=== PATIENT | female | born 1980 | race Two or more races ===

== ENCOUNTER 2016-12-05 07:29 | Emergency (ER) | payer BC ==
[2016-12-05] MEDS ORDERED: NS 0.9% 1000 ML* 1,000 ML IV ONE ×2 (07:57→12:07)
[2016-12-05] MEDS ORDERED: HYDROmorphone* 1 MG/ML 1 ML SYR IV ONE (07:57)
[2016-12-05] MEDS ORDERED: Ondansetron INJ* 2 MG/ML VIAL IV ONE (07:57)
[2016-12-05 08:46] LABS: Hematocrit 43 % (35-47); Hemoglobin 13.9 g/dl (12.0-16.0); Mean Corpuscular HGB Conc 32 g/dl (31-36); Mean Corpuscular Hemoglobin 30 pg (27-31); Mean Corpuscular Volume 91 fL (80-97); Mean Platelet Volume 9 um3 (7.4-10.4); Red Blood Count 4.71 10^6/ul (4.0-5.4); Red Cell Distribution Width 14 % (10.5-15); White Blood Count 15.1 10^3/ul (3.5-10.8)
[2016-12-05 08:47] LABS: Comments Flag Yes
[2016-12-05 08:48] LABS: Add Diff/Slide Review? Slide Review Added
[2016-12-05 09:02] LABS: ALT 137 U/L (7-52); AST 144 U/L (13-39); Albumin 3.8 g/dL (3.2-5.2); Alkaline Phosphatase 61 U/L (34-104); Anion Gap 6 mmol/L (2-11); BUN/Creatinine Ratio 18.8 (8-20); Blood Urea Nitrogen 15 mg/dL (6-24); C Reactive Protein 21.79 mg/L (< 5.00); CO2 Carbon Dioxide 23 mmol/L (22-32); Calcium 8.6 mg/dL (8.6-10.3); Chloride 106 mmol/L (101-111); EGFR African American 104.4 (>60); EGFR Non-African American 81.2 (>60); Globulin 3.2 g/dL (2-4); Glucose 83 mg/dL (70-100); Lipase 21 U/L (11.0-82.0); Potassium 3.8 mmol/L (3.5-5.0); Sodium 135 mmol/L (133-145)
[2016-12-05 09:23] LABS: Immature Granulocytes 5 % (0-9); Neutrophil % 76 % (38-83)
[2016-12-05 09:24] LABS: Platelet Morphology Large; RBC Morphology Normal (Normal)
[2016-12-05 11:47] LABS: Urine Bacteria Absent (Absent); Urine Bilirubin Negative (Negative); Urine Glucose Negative (Negative); Urine Nitrite Negative (Negative)
[2016-12-05] MEDS ORDERED: Ketorolac INJ* 30 MG/ML 1 ML VIAL IV ONE (12:17)
--- NOTE | 2016-12-05 13:34 | ED ---
Beth Alford Salem, scribed for Gera Conroy MD on 12/05/16 at 0819 . Abdominal Pain/Female - HPI Summary HPI Summary: Patient is a 36 y/o F who presents to the ED with LLQ abd pain for the past 3 days. She reports diarrhea following abd cramps and vomiting, but denies nausea. She states that two of her children had gastroenteritis recently and have had V/D. Pt is concerned that she may be dehydrated. LMP was 2 weeks ago. - History of Current Complaint Chief Complaint: EDAbdPain Stated Complaint: VOMITING Time Seen by Provider: 12/05/16 07:41 Hx Obtained From: Patient Onset/Duration: Gradual Onset, Lasting Days, Still Present Timing: Intermittent Episode Lasting Severity Initially: Moderate Severity Currently: Moderate Pain Intensity: 5 Pain Scale Used: 0-10 Numeric Location: Discrete At: LLQ Radiates: No Character: Sharp Aggravating Factor(s): Food Alleviating Factor(s): Nothing Associated Signs and Symptoms: Positive: Vomiting, Diarrhea Allergies/Adverse Reactions: Allergies Allergy/AdvReac Type Severity Reaction Status Date / Time No Known Allergies Allergy Verified 12/05/16 08:05 PMH/Surg Hx/FS Hx/Imm Hx Previously Healthy: Yes Infectious Disease History: No Infectious Disease History: Denies: Traveled Outside the [place] in Last 30 Days - Family History Known Family History: Negative: Cardiac Disease, Hypertension - Social History Alcohol Use: None Substance Use Type: Reports: None Review of Systems Negative: Fever Positive: Abdominal Pain - LLQ., Vomiting, Diarrhea. Negative: Nausea All Other Systems Reviewed And Are Negative: Yes Physical Exam Triage Information Reviewed: Yes Vital Signs On Initial Exam: Initial Vitals Temp Pulse Resp BP Pulse Ox 99.5 F 102 20 118/62 100 12/05/16 07:30 12/05/16 07:30 12/05/16 07:30 12/05/16 07:30 12/05/16 07:30 Vital Signs Reviewed: Yes Appearance: Positive: Well-Appearing, Well-Nourished, Pain Distress Skin: Positive: Warm, Skin Color Reflects Adequate Perfusion, Dry Head/Face: Positive: Normal Head/Face Inspection Eyes: Positive: Normal Neck: Positive: Supple, Nontender Respiratory/Lung Sounds: Positive: Clear to Auscultation, Breath Sounds Present Cardiovascular: Positive: RRR Abdomen Description: Positive: Soft, Other: - Diffusely tender. Bowel Sounds: Positive: Present Musculoskeletal: Positive: Normal Neurological: Positive: Normal Psychiatric: Positive: Normal, Affect/Mood Appropriate Diagnostics - Vital Signs Vital Signs Temp Pulse Resp BP Pulse Ox 12/05/16 07:33 98.4 F 99 20 118/62 100 12/05/16 07:30 99.5 F 102 20 118/62 100 - Laboratory Lab Results: Lab Results 12/05/16 12/05/16 12/05/16 Range/Units 08:35 08:35 08:35 WBC 15.1 H (3.5-10.8) 10^3/ul RBC 4.71 (4.0-5.4) 10^6/ul Hgb 13.9 (12.0-16.0) g/dl Hct 43 (35-47) % MCV 91 (80-97) fL MCH 30 (27-31) pg MCHC 32 (31-36) g/dl RDW 14 (10.5-15) % Plt Count 299 (150-450) 10^3/ul MPV 9 (7.4-10.4) um3 Immature Gran % (Auto) 5 (0-9) % Neut % (Auto) 82.9 (38-83) % Lymph % (Auto) 7.4 L (25-47) % [place] % (Auto) 9.0 (1-9) % Eos % (Auto) 0.3 (0-6) % Baso % (Auto) 0.4 (0-2) % Absolute Neuts (auto) 12.5 H (1.5-7.7) 10^3/ul Absolute Lymphs (auto) 1.1 (1.0-4.8) 10^3/ul Absolute Monos (auto) 1.4 H (0-0.8) 10^3/ul Absolute Eos (auto) 0 (0-0.6) 10^3/ul Absolute Basos (auto) 0.1 (0-0.2) 10^3/ul Absolute Nucleated RBC 0.01 10^3/ul Neutrophils % 76 (38-83) % Band Neutrophils % 5 (0-8) % Lymphocytes % 13 L (25-47) % Monocytes % 6 (0-13) % Nucleated RBC % 0.1 Platelet Morphology Large Normal RBC Morphology Normal (Normal) Sodium 135 (133-145) mmol/L Potassium 3.8 (3.5-5.0) mmol/L Chloride 106 (101-111) mmol/L Carbon Dioxide 23 (22-32) mmol/L Anion Gap 6 (2-11) mmol/L BUN 15 (6-24) mg/dL Creatinine 0.80 (0.51-0.95) mg/dL Est GFR ( Amer) 104.4 (>60) Est GFR (Non-Af Amer) 81.2 (>60) BUN/Creatinine Ratio 18.8 (8-20) Glucose 83 (70-100) mg/dL Lactic Acid 0.8 (0.5-2.0) mmol/L Calcium 8.6 (8.6-10.3) mg/dL Total Bilirubin 0.30 (0.2-1.0) mg/dL AST 144 H (13-39) U/L ALT 137 H (7-52) U/L Alkaline Phosphatase 61 (34-104) U/L C-Reactive Protein 21.79 H (< 5.00) mg/L Total Protein 7.0 (6.4-8.9) g/dL Albumin 3.8 (3.2-5.2) g/dL Globulin 3.2 (2-4) g/dL Albumin/Globulin Ratio 1.2 (1-3) Lipase 21 (11.0-82.0) U/L Beta HCG, Quant < 0.60 mIU/mL Urine Color Urine Appearance Urine pH (5-9) Ur Specific [place] (1.010-1.030) Urine Protein (Negative) Urine Ketones (Negative) Urine Blood (Negative) Urine Nitrate (Negative) Urine Bilirubin (Negative) Urine Urobilinogen (Negative) Ur Leukocyte Esterase (Negative) Urine WBC (Auto) (Absent) Urine RBC (Auto) (Absent) Ur Squamous Epith Cells (Absent) Urine Bacteria (Absent) Urine Glucose (Negative) 12/05/16 Range/Units 11:30 WBC (3.5-10.8) 10^3/ul RBC (4.0-5.4) 10^6/ul Hgb (12.0-16.0) g/dl Hct (35-47) % MCV (80-97) fL MCH (27-31) pg MCHC (31-36) g/dl RDW (10.5-15) % Plt Count (150-450) 10^3/ul MPV (7.4-10.4) um3 Immature Gran % (Auto) (0-9) % Neut % (Auto) (38-83) % Lymph % (Auto) (25-47) % [place] % (Auto) (1-9) % Eos % (Auto) (0-6) % Baso % (Auto) (0-2) % Absolute Neuts (auto) (1.5-7.7) 10^3/ul Absolute Lymphs (auto) (1.0-4.8) 10^3/ul Absolute Monos (auto) (0-0.8) 10^3/ul Absolute Eos (auto) (0-0.6) 10^3/ul Absolute Basos (auto) (0-0.2) 10^3/ul Absolute Nucleated RBC 10^3/ul Neutrophils % (38-83) % Band Neutrophils % (0-8) % Lymphocytes % (25-47) % Monocytes % (0-13) % Nucleated RBC % Platelet Morphology Normal RBC Morphology (Normal) Sodium (133-145) mmol/L Potassium (3.5-5.0) mmol/L Chloride (101-111) mmol/L Carbon Dioxide (22-32) mmol/L Anion Gap (2-11) mmol/L BUN (6-24) mg/dL Creatinine (0.51-0.95) mg/dL Est GFR ( Amer) (>60) Est GFR (Non-Af Amer) (>60) BUN/Creatinine Ratio (8-20) Glucose (70-100) mg/dL Lactic Acid (0.5-2.0) mmol/L Calcium (8.6-10.3) mg/dL Total Bilirubin (0.2-1.0) mg/dL AST (13-39) U/L ALT (7-52) U/L Alkaline Phosphatase (34-104) U/L C-Reactive Protein (< 5.00) mg/L Total Protein (6.4-8.9) g/dL Albumin (3.2-5.2) g/dL Globulin (2-4) g/dL Albumin/Globulin Ratio (1-3) Lipase (11.0-82.0) U/L Beta HCG, Quant mIU/mL Urine Color Yellow Urine Appearance Cloudy Urine pH 5.0 (5-9) Ur Specific [place] 1.023 (1.010-1.030) Urine Protein 1+(30 mg/dl) H (Negative) Urine Ketones 1+ H (Negative) Urine Blood 1+ H (Negative) Urine Nitrate Negative (Negative) Urine Bilirubin Negative (Negative) Urine Urobilinogen Negative (Negative) Ur Leukocyte Esterase Negative (Negative) Urine WBC (Auto) Trace(0-5/hpf) (Absent) Urine RBC (Auto) 1+(3-5/hpf) H (Absent) Ur Squamous Epith Cells Present H (Absent) Urine Bacteria Absent (Absent) Urine Glucose Negative (Negative) Result Diagrams: 12/05/16 08:35 12/05/16 08:35 Lab Statement: Any lab studies that have been ordered have been reviewed, and results considered in the medical decision making process. Re-Evaluation - Re-Evaluation First Eval Re-Evaluation Time: 10:07 Comment: Re-evaluated pt. Second Eval Re-Evaluation Time: 11:48 Comment: Infromed of plan to DC. Abdominal Pain Fem Course/Dx - Course Course Of Treatment: Ms. Romeo presented with persistent diarrhea. Her child had N/V/D for a day or so and then she got it 3 days ago. The vomiting has resolved but she continues with crampy abd pain and diarrhea that's watery. She was rehydrated here and her labs were checked. She had a mild leukocytosis. She improved significntly and although she was unable to give us a stool sample, she was stable for D/C. - Diagnoses Provider Diagnoses: Gastroenteritis Discharge - Discharge Plan Condition: Stable Disposition: HOME Patient Education Materials: Gastroenteritis (ED) Referrals: [facility] [place] [facility]FERRAL [Outside] Additional Instructions: Follow up with referral. The documentation as recorded by the Beth fernandez Salem accurately reflects the service I personally performed and the decisions made by me, Gera Conroy MD.
== END 2016-12-05 12:28 | disposition home or self-care (01) ==
LOC: ED 07:29
DX: K52.9 Noninfective gastroenteritis and colitis, unspecified (principal); R10.32 Left lower quadrant pain; R11.10 Vomiting, unspecified; R19.7 Diarrhea, unspecified
CPT/HCPCS: 36415; 80053; 81003; 81015; 83605; 83690; 84702; 85025; 86140; 96374; 96375; 99283; J1170; J1885; J2405

== ENCOUNTER 2017-09-02 13:14 | Emergency (ER) | payer BC ==
[2017-09-02 13:30] VITALS: BP 104/55
[2017-09-02] MEDS ORDERED: Metoclopramide TAB* 10 MG PO ONE (14:04)
--- NOTE | 2017-09-02 14:29 | UC ---
Respiratory Complaint HPI - HPI Summary HPI Summary: 36 year old female here with URI symptoms for two days. Reports also headache with these symptoms. Headache is described as sharp, as band like with associated symptoms of nausea but no vomiting. Denies photophobia/phonophobia. No motor deficit. 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 - History of Current Complaint Chief Complaint: UCGeneralIllness Stated Complaint: HEADACHE,BODYACHE Time Seen by Provider: 09/02/17 13:36 Hx Obtained From: Patient Hx Last Menstrual Period: August 11 Onset/Duration: Sudden Onset Pain Intensity: 3 Character: Cough: Productive Associated Signs And Symptoms: Positive: Dyspnea. Negative: Pleuritic Chest Pain, Hemoptysis, Calf Pain, Calf Swelling, Nasal Congestion - Risk Factors Pulmonary Embolism Risk Factors: - Allergies/Home Medications Allergies/Adverse Reactions: Allergies Allergy/AdvReac Type Severity Reaction Status Date / Time No Known Allergies Allergy Verified 12/05/16 08:05 Home Medications: Home Medications Ibuprofen [Advil] 200 mg PO 09/02/17 [History] PMH/Surg Hx/FS Hx/Imm Hx Previously Healthy: Yes - Surgical History Surgical History: Yes Surgery Procedure, Year, and Place: splenectomy. c sections - Family History Known Family History: Negative: Cardiac Disease, Hypertension - Social History Alcohol Use: None Substance Use Type: None Smoking Status (MU): Never Smoked Tobacco Review of Systems Constitutional: Chills Gastrointestinal: Nausea Neurological: Headache Is Patient Immunocompromised?: No All Other Systems Reviewed And Are Negative: Yes Physical Exam Triage Information Reviewed: Yes Appearance: Well-Appearing, No Pain Distress Vital Signs: Initial Vital Signs Temp 36.9 C 09/02/17 13:24 Pulse 86 09/02/17 13:24 Resp 16 09/02/17 13:24 BP 104/55 09/02/17 13:24 Pulse Ox 99 09/02/17 13:24 ENT Exam: Normal ENT: Positive: Normal ENT inspection. Negative: Tonsillar swelling, Tonsillar exudate, Hoarse voice, Dental tenderness, Sinus tenderness Neck exam: Normal Neck: Positive: Supple, Nontender, No Lymphadenopathy Respiratory: Positive: Chest non-tender, Lungs clear, Normal breath sounds, No respiratory distress Cardiovascular: Positive: RRR, No Murmur, Pulses Normal Abdomen Description: Positive: Nontender, No Organomegaly, Soft Musculoskeletal Exam: Normal Neurological Exam: Normal Neurological: Positive: Unresponsive. Negative: Lethargic Psychological Exam: Normal Skin Exam: Normal UC Diagnostic Evaluation - Laboratory O2 Sat by Pulse Oximetry: 99 Respiratory Course/Dx - Course Course Of Treatment: Viral illness. Symptomatic treatment - Differential Dx/Diagnosis Differential Diagnosis/HQI/PQRI: Bronchitis, Laryngitis, Lower Resp Infection Provider Diagnoses: URI. Headache, most likley exacerbated by URI. No concern for SAH/meningitist given normal neuro exam. Discharge - Discharge Plan Condition: Good Disposition: HOME Prescriptions: Metoclopramide TAB* [Reglan TAB*] 5 mg PO Q8H PRN #20 tab PRN Reason: Nausea Patient Education Materials: Tension Headache (ED), Viral Syndrome (ED) Forms: *Work Release Referrals: Bobby Mack MD [Primary Care Provider] -
== END 2017-09-02 14:45 | disposition home or self-care (01) ==
LOC: UCEAST 13:14
DX: J06.9 Acute upper respiratory infection, unspecified (principal); R51 Headache
CPT/HCPCS: 87502; 99212; A9270-GY; G0463